=== PATIENT | female | born 1980 | race African-American/Black ===

== ENCOUNTER 2021-02-13 17:27 | Emergency (ER) | payer OTHER ==
[~2021-02-13] VITALS: Ht 172.7 cm; Wt 82.0 kg
[2021-02-13] MEDS ORDERED: IPRATROPIUM BROMIDE (0.02%) 0.5MG/2.5ML NEB HHN STA (17:33)
[2021-02-13] MEDS ORDERED: METHYLPREDNISOLONE SOD SUCC 125 MG/2 ML VIAL IV STA (17:33)
[2021-02-13] MEDS ORDERED: EPINEPHRINE 1:1000 1 MG/ML AMP IM ONE (17:45)
[2021-02-13] MEDS ORDERED: MAGNESIUM 2 G PREMIX 50 ML IV ONE (17:45)
[2021-02-13] MEDS: ALBUTEROL (0.083%) 2.5MG/3ML NEB HHN SCH ×2 (18:29→18:30)
[2021-02-13] MEDS ORDERED: ALBU6.7H9 INH (21:59)
[2021-02-13] MEDS ORDERED: P20 MT (21:59)
[2021-02-13] MEDS ORDERED: ALBU05 NEB (21:59)
[2021-02-13 22:25] VITALS: BP 112/79
== END 2021-02-13 22:30 | disposition home or self-care (01) ==
LOC: ER 17:27
DX: J45.901 Unspecified asthma with (acute) exacerbation (principal); I10 Essential (primary) hypertension
CPT/HCPCS: 71045; 93005; 94640; 96365; 96372; 96375; 99291; J2930; J3475; J3490; Z7610